=== PATIENT | male | born 1940 | race Caucasian/White ===

== ENCOUNTER 2024-01-04 11:48 | Day surgery (SDC) | payer MEDICARE, OTHER, SELFPAY ==
[2024-01-04] VITALS (15 sets, daily range): BP systolic 118–149; BP diastolic 66–112; BMI 25.6
[2024-01-04] MEDS: NSS 229 ML IV (12:40)
[2024-01-04 14:12] LABS: ACT-LR - POC 274 Seconds (116-155)
--- NOTE | 2024-01-04 15:25 | ITS.CL.ANGIO ---
S[facility] - Angioplasty
Angioplasty
Procedure Report:
LEFT HEART CATHETERIZATION
Date of Procedure: January 04, 2024
Procedures performed:
1: Coronary angiography
2: Left ventricular hemodynamic assessment
3: Left internal mammary artery bypass graft angiography
4: Percutaneous coronary intervention of the left circumflex with placement of 2 drug-eluting stent (2.25 x 15 15 mm overlapping with a 2.5 x 12 mm [place] drug-eluting stents both postdilated at high pressure with a 2.5 mm diameter noncompliant
balloon)
Primary Care Physician: Dr. Usha Dominguez
Primary Health Director: Myself
INDICATION: The patient is an 83-year-old man with past medical history of coronary artery disease status post CABG presents with crescendo angina.
ACCESS: The patient was prepped and draped in usual sterile fashion. A 6 Bolivian sheath was placed in the left radial artery using the Seldinger over the wire technique.
HEMODYNAMIC FINDINGS (mmHg):
LV(s/d,EDP): 130/13, 22
Ao(s/d,m): 130/63, 93
ANGIOGRAPHIC FINDINGS:
Single-plane Left Ventriculography in [facility]AL[facility] Projection: Normal LVEF by recent echo
Coronary Angiography:
Dominance: Right
Left Main: Medium caliber. No angiographic stenosis however clear dampening with 6 Bolivian catheter engagement suggests some degree of diffuse disease.
Left Anterior Descending: The LAD is occluded after the takeoff of a previously placed stent and appears unchanged with small vessel disease distally to prior angiography in 2019. It does gives rise to 3 large septal branches. The proximal vessel
is patent.
Left Circumflex: The left circumflex is a medium caliber nondominant system that gives rise to 2 major obtuse marginal branches that are relatively large. The circumflex takeoff has 180 degree acute bend and has diffuse 40 to 50% disease. OM1 has
ostial 40 to 50% disease with proximal 50% disease. This appears unchanged from prior angiography in 2019. The distal vessel is tortuous but angiographically normal with normal flow. The second obtuse marginal branch has a preocclusive 95% mid
stenosis followed by a second 90% stenosis with ANGEL II distal flow.
Right Coronary: The right coronary artery is a relatively large caliber dominant vessel the proximal right coronary artery has new 50% ulcerated disease which appears to be a healed ruptured plaque. This is followed by a smooth mid 40% lesion in
the mid artery followed by moderate 30% disease of the acute margin. There is a high PDA takeoff which is relatively small vessel. The distal circumflex gives rise to 3 main posterior left ventricular branches. The first branch has moderate
proximal disease and the largest distal PLV branch has a hazy 60% proximal stenosis which is new. All vessels have ANGEL-3 distal flow.
PINZON to LAD: Widely patent graft and anastomosis. The distal LAD has severe 80% small vessel disease at the apex.
Percutaneous Coronary Intervention (PCI): In light of the above angiographic findings I elected to proceed with PCI. The patient was pretreated with aspirin. Unfractionated heparin was given. A 6 Bolivian XB 3.5 guiding catheter was used to engage
the left main. A BMW wire was successfully advanced with some difficulty around the tortuous circumflex takeoff and advanced distally into the major OM branch. A 2.0 x 12 mm balloon was used to dilate the 2 preocclusive lesions. This restored
antegrade ANGEL-3 flow. Next a 6 Bolivian Guideliner was used to deliver a 2.25 x 15 mm [place] drug-eluting stent distally which was deployed at 14 john. I specifically chose to treat the lesions with 2 shorter stents as I was not confident that a
longer stent would track around the proximal tortuosity. Next a 2.5 x 12 mm Hossein drug-eluting stent was deployed proximally in overlapping fashion at 14 john. The entire stented segment was postdilated at 16 john with a 2.5 mm diameter noncompliant
balloon.
FINAL RESULT: 0% in-stent residual stenosis with excellent angiographic result and ANGEL-3 flow in all vessels.
Fluoroscopy Time (min): 14.9
Radiation Dose (mGy): 926
DAP (Gy.cm2): 63
Closure device: None. A TR band was applied for hemostasis at the left wrist.
Complications: None.
ASSESSMENT:
1: Successful PCI of the culprit OM with placement of 2 drug-eluting stents as described above.
2: Progressive nonobstructive disease in the right coronary artery as described above.
3: Widely patent PINZON to LAD with distal small vessel disease as described above.
CONCLUSIONS and RECOMMENDATIONS:
1: Routine post drug-eluting stent with dual antiplatelet therapy using aspirin Plavix for a minimum of a year.
2: Medical therapy for coronary artery disease and hypertension.
David Irizarry M.D.
Copy to: Dr. Usha Dominguez
[2024-01-04 15:27] LABS: ACT-LR - POC > 397 Seconds (116-155)
--- NOTE | 2024-01-04 16:38 | CM ---
Chart reviewed. Patient is independent of ADLS, lives with his in a apartment at [facility], elevator access, 0 DME. Patient is not current with VN. Plan is for the patient to return home. CM to follow
[2024-01-04] MEDS: LIPITOR 80 MG PO (17:21)
[2024-01-05 04:42] VITALS: BP 137/77
[2024-01-05 05:19] LABS: Hematocrit 41.5 % (39.0-52.0); Hemoglobin 13.8 g/dL (13.0-18.0); Mean Corp Hgb Conc. 33.3 g/dL (33.0-37.0); Mean Corpuscular Hgb 32.4 pg (27.0-31.0); Mean Corpuscular Volume 97.4 fL (80.0-94.0); Mean Platelet Volume 10.1 fL (7.4-10.4); Platelet Count 108 10^3/uL (130-400); Red Blood Cell Count 4.26 10^6/uL (4.70-6.10); Red Cell Dist. Width 12.9 % (11.5-14.5)
[2024-01-05 05:22] VITALS: BMI 23.5
[2024-01-05 05:34] LABS: White Blood Cell Count 55.1 10^3/uL (4.8-10.8)
[2024-01-05 05:42] LABS: Blood Urea Nitrogen 18 mg/dl (9-20); Calcium 9.3 mg/dl (8.4-10.2); Carbon Dioxide 27 mmol/L (22-30); Chloride 105 mmol/L (98-107); Estimated Creatinine Clearance 53 ml/min; Glucose 95 mg/dl (70-99); Sodium 140 mmol/L (135-145); eGFR > 60.00
[2024-01-05 06:46] VITALS: BP 122/74
--- NOTE | 2024-01-05 07:08 | W.PN.CARDCBS ---
Addendum entered and electronically signed by Reggie Sagastume, 01/05/24 08:46:
I saw and examined the patient.
The Compensation Consulting Manager's note was reviewed and I agree with the note.
Comment:
Resting comfortably, no complaints. No CP, sob, palpitations, syncope, or weakness.
GEN: NAD. AAOx3
HEENT: Wearing hearing aids and glasses. EOMI. MMM.
LUNGS: No audible wheeze
CV: Sinus on tele
ABD: ND
EXT: left radial dressing removed to reveal ecchymosis without hematoma. +2 radial pulse without thrill.
NEURO: Gross non-focal
SKIN: No rash
PCP: Dr. Usha Dominguez
Cardiology: Dr. Irizarry
Impression:
Transfer from [facility] to for cath 01/04/24
CAD
s/p mid LAD PTCA and stent 03/15/05
stable CAD by cath at 08/24/05
medical management of LAD 06/2013
s/p CABG with PINZON to LAD at 10/2014
s/p overlapping 2.25 mm and 2.5 mm Hossein MARYA to Circ 01/04/24TN
Hyperlipidemia
Echo 01/03/24: EF 55-60%, no evidence of , mild MR, no significant change compared to 03/13/20
Plan:
-Patient was transferred from [facility] to for cardiac cath 01/04/24. Patient had chest pain during stress test 01/02/24 and describes chest pain that he couldn't tell if it was GERD or angina. He now feels better after PCI 01/04/24.
-Left radial site inspected and he has ecchymosis without hematoma. Limb restrictions reviewed.
-Aspiring continued and Plavix added.
-Platelet count was 120 at [facility] 01/04/24 and is 108 at on 01/05/24. Patient follows with Dr. Milan. Also, WBC was 57 at [facility] and is 55 at , patient updated with both lab values.
-New to atorvastatin 80 mg daily. Check CVE. None found in available records.
-Outpatient dose of Zetia 10 mg daily continued.
-Anticipate d/c to home 01/05/24; stable for DC
Original Note:
Today's Communication / Plan
-
D/C to home today
Impression / Plan
-
PCP: Dr. Usha Dominguez
Cardiology: Dr. Irizarry
Impression:
Transfer from [facility] to for cath 01/04/24
CAD
s/p mid LAD PTCA and stent 03/15/05
stable CAD by cath at 08/24/05
medical management of LAD 06/2013
s/p CABG with PINZON to LAD at 10/2014
s/p overlapping 2.25 mm and 2.5 mm Hossein MARYA to Circ 01/04/24
HTN
Hyperlipidemia
Echo 01/03/24: EF 55-60%, no evidence of , mild MR, no significant change compared to 03/13/20
Plan:
-Patient was transferred from [facility] to for cardiac cath 01/04/24. Patient had chest pain during stress test 01/02/24 and describes chest pain that he couldn't tell if it was GERD or angina. He now feels better after PCI 01/04/24.
-Left radial site inspected and he has ecchymosis without hematoma. Limb restrictions reviewed.
-Aspiring continued and Plavix added.
-Platelet count was 120 at [facility] 01/04/24 and is 108 at on 01/05/24. Patient follows with Dr. Milan. Also, WBC was 57 at [facility] and is 55 at , patient updated with both lab values.
-New to atorvastatin 80 mg daily. Check CVE. None found in available records.
-Outpatient dose of Zetia 10 mg daily continued.
-Anticipate d/c to home 01/05/24
Progress Note - Ply Splicer
Subjective
Date of Service: January 05, 2024
He feels well, GERD symptoms prior to admission have improved
Objective
Labs:
01/05/24 04:54
01/05/24 04:54
Labs
Hgb 13.8 g/dL (13.0-18.0) 01/05/24 04:54
Hct 41.5 % (39.0-52.0) 01/05/24 04:54
Plt Count 108 10^3/uL (130-400) L 01/05/24 04:54
Sodium 140 mmol/L (135-145) 01/05/24 04:54
Potassium 5.0 mmol/L (3.5-5.1) 01/05/24 04:54
BUN 18 mg/dl (9-20) 01/05/24 04:54
Creatinine 1.0 mg/dL (0.7-1.3) 01/05/24 04:54
Glucose 95 mg/dl (70-99) 01/05/24 04:54
Vital Signs and I&O:
Vital Signs
Temp Pulse Resp BP Pulse Ox
97.8 F 66 18 118/71 95
01/05/24 06:50 01/05/24 03:00 01/05/24 06:50 01/04/24 22:44 01/05/24 07:08
Vital Signs
Temp Pulse Resp BP Pulse Ox
97.8 F 66 18 118/71 95
01/05/24 06:50 01/05/24 03:00 01/05/24 06:50 01/04/24 22:44 01/05/24 07:08
Intake & Output
01/03/24 01/04/24 01/05/24 01/06/24
06:59 06:59 06:59 06:59
Intake Total 574 / 574
Output Total 1400 / 1400
Balance -826 / -826
Physical Exam
Physical Exam
GEN: NAD. AAOx3
HEENT: Wearing hearing aids and glasses. EOMI. MMM.
LUNGS: No audible wheeze
CV: Sinus on tele
ABD: ND
EXT: Right radial dressing removed to reveal ecchymosis without hematoma. +2 radial pulse without thrill.
NEURO: Gross non-focal
SKIN: No rash
[2024-01-05] MEDS: ZETIA 10 MG PO (08:05)
[2024-01-05] MEDS: ASPIR LOW (ENTERIC COATED) 81 MG PO (08:06)
[2024-01-05] MEDS: IMDUR (EXTENDED RELEASE) 30 MG PO (08:06)
[2024-01-05] MEDS: CASODEX 50 MG PO (08:06)
[2024-01-05] MEDS: PLAVIX 75 MG PO (08:06)
[2024-01-05] MEDS: TOPROL XL 25 MG PO (08:06)
[2024-01-05] MEDS: PROTONIX 40 MG PO (08:06)
[2024-01-05] MEDS: NORVASC 5 MG PO (08:06)
--- NOTE | 2024-01-05 08:34 | W.DS.TRANS ---
DC Summary - Candles Pourer
-
Discharge Instructions:
Discharge Diagnosis/Procedures Coronary Artery Disease s/p PCI/stent x 2 to
Circumflex artery
Diet Low Cholesterol
Activity Other activity
Driving Restrictions No driving for 24 hours
Bathing Restrictions OK to Shower
Other Services Cardiac Rehab
Instructions:
Stand-Alone Forms: DC Instructions- Cath/EP Lab
DC Inst - Same Day PCI
Changes to Home Medications: Yes
Discharge Medications:
DC Medications w/original date entered in [facility]
amlodipine 5 mg tablet 5 mg PO DAILY 10/20/14
aspirin 81 mg tablet,delayed release 81 mg PO DAILY 10/20/14
atorvastatin 80 mg tablet 80 mg PO QPM #30 tabs 01/04/24
bicalutamide 50 mg tablet (Casodex) 50 mg PO DAILY 01/04/24
clopidogrel 75 mg tablet 75 mg PO DAILY #30 tabs 01/04/24
ezetimibe 10 mg tablet (Zetia) 10 mg PO DAILY 01/04/24
isosorbide mononitrate 30 mg tablet,extended release 24 hr 30 mg PO DAILY 01/04/24
metoprolol succinate 25 mg tablet,extended release 24 hr 25 mg PO DAILY 01/04/24
pantoprazole 40 mg tablet,delayed release 40 mg PO DAILY 01/04/24
Home Medication Changes
New to atorvastatin and Plavix
Pending Results: No
[2024-01-05 09:31] VITALS: BP 139/64
== END 2024-01-05 11:11 | disposition home or self-care (01) ==
LOC: CATH 11:48
PROVIDERS: Physician Assistant Medical; ATTENDING PHYSICIAN Internal Medicine Interventional Cardiology; FAMILY PHYSICIAN Family Medicine; REFERRING PHYSICIAN Internal Medicine Cardiovascular Disease
DX: I25.110 Atherosclerotic heart disease of native coronary artery with unstable angina pectoris (principal); R94.39 Abnormal result of other cardiovascular function study; I10 Essential (primary) hypertension; E78.5 Hyperlipidemia, unspecified; R07.9 Chest pain, unspecified; Z95.1 Presence of aortocoronary bypass graft; Z79.02 Long term (current) use of antithrombotics/antiplatelets; Z79.82 Long term (current) use of aspirin; Z79.899 Other long term (current) drug therapy
CPT/HCPCS: 80048; 85027; 85347; 93005; 93459; C1725; C1769; C1874; C1894; C9600; Q9967

== ENCOUNTER 2024-12-17 12:06 | Day surgery (SDC) | payer MEDICARE, OTHER, SELFPAY ==
[2024-12-17] VITALS (10 sets, daily range): BP systolic 108–122; BP diastolic 48–65; BMI 24.1
[2024-12-17 14:20] LABS: Troponin I < 0.012 ng/ml
--- NOTE | 2024-12-17 15:06 | ITS.CL.CATH ---
[facility] - Catheterization
Cardiac Catheterization
Procedure Report:
LEFT HEART CATHETERIZATION
Date of Procedure: December 17, 2024
Referring: Kris Love MD
PROCEDURES:
1. Left heart catheterization, coronary angiogram.
2. Selective graft angiography.
3. Ultrasound-guided access
INDICATION: Concern for unstable angina
ACCESS: Left radial artery, 6 Telugu sheath, under ultrasound-guided
Ultrasound was utilized for vascular access. The radial artery was visualized under ultrasound, and the vessel was patent and pulsatile. An image was stored permanently in the patient's medical record. Under direct ultrasound guidance, a 6 Telugu
sheath was inserted into the artery using a micropuncture kit through a modified Seldinger technique.
HEMODYNAMICS : (mmHg)
AO (s/d) : 111/52
LV (s/d) : 112/10
LVEDP : 23
Coronary Angiography:
Dominance: Right
Left Main: The left main is a medium caliber vessel gives rise to left anterior descending artery and the left circumflex artery. There is mild diffuse atherosclerotic plaque.
Left Anterior Descending: The left anterior descending artery is occluded after the takeoff of a previously placed stent and appears unchanged with small vessel disease distally to prior angiography in 2019. It does gives rise to 3 large septal
branches. The proximal vessel is patent.
Left Circumflex: The left circumflex is a medium caliber nondominant system that gives rise to 2 major obtuse marginal branches that are relatively large. The circumflex takeoff has 180 degree acute bend and has diffuse 40 to 50% disease. OM1 has
ostial to proximal 70% stenosis. Midportion of OM1 has tubular up to 70 to 80% stenosis. These lesions appear worse compared to prior angiography from 2023 but the vessel has ANGEL-3 flow. The distal vessel is tortuous but angiographically normal
with normal flow. Previous stents from 2023 and mid circumflex to OM 2 are widely patent.
Right Coronary: The right coronary artery is a large-caliber, dominant vessel which gives rise to right posterior descending artery and the right posterolateral system. Proximal to mid RCA has a smooth 40 to 50% stenosis. Moderate RCA has diffuse
up to 20 to 30% stenosis. There is a focal 60 to 70% stenosis and a medium caliber posterolateral branch. All vessels have ANGEL-3 flow.
PINZON to LAD: Widely patent graft and anastomosis. The distal LAD has severe 80% small vessel disease at the apex.
SEDATION: 37 minutes of procedural sedation was utilized. An independent medical assistant supervisor was present to assist with and help manage the patient's level of consciousness and physiologic status.
RADIATION SUMMARY: Fluoro Time (min): 2.8, Dose (mGy): 204.68, DAP (Gy.cm2) : 14.87
Closure Device: Vascular band over left radial artery, 10 cc of air.
CONCLUSIONS
1. Overall stable coronary artery disease when compared to angiography in 2023 with the exception of some progression in OM1 however given there is ANGEL-3 flow noted with no stigmata of acute changes to explain atypical chest discomfort in the
setting of norovirus, decision was made to pursue medical therapy after discussion with my senior interventional partner, Dr. Damián Browne.
2. Elevated LVEDP at 23 mmHg.
RECOMMENDATIONS
1. Continued medical therapy for coronary artery disease.
2. Wean radioman per protocol.
3. Aggressive management of cardiovascular risk factors.
4. Defer management and norovirus to primary team.
Copy to: oFreign Begum
Melly Vazquez MD, [facility]
== END 2024-12-17 16:00 | disposition short-term general hospital (02) ==
LOC: CATH 12:06
PROVIDERS: Nurse Practitioner Adult Health; ATTENDING PHYSICIAN Internal Medicine Interventional Cardiology
DX: I25.10 Atherosclerotic heart disease of native coronary artery without angina pectoris (principal); R07.89 Other chest pain; Z95.5 Presence of coronary angioplasty implant and graft; I10 Essential (primary) hypertension; C91.10 Chronic lymphocytic leukemia of B-cell type not having achieved remission
CPT/HCPCS: 99152; 99153; 84484; 93458; Q9967